=== PATIENT | male | born 1965 | race Hispanic/Latino ===

== ENCOUNTER 2017-09-18 12:05 | Emergency (ER) | payer OTHER ==
[~2017-09-18] VITALS: Ht 182.9 cm; Wt 113.4 kg
[~2017-09-18 12:05] MED LIST: AUGMENTIN 875 M1 TAB PO
--- NOTE | 2017-09-18 12:40 | ED NECK/BACK PAIN COMPLAINT ---
History of Present Illness General Chief Complaint: General Adult Stated Complaint: LEG AND BACK PAIN Source: patient, family Exam Limitations: no limitations Vital Signs & Intake/Output Vital Signs & Intake/Output Vital Signs Date Time Temp Pulse Resp B/P B/P Pulse O2 O2 Flow FiO2 Mean Ox Delivery Rate 09/18 1408 88 18 135/70 98 Room Air ED Intake and Output 05/ 0000 05 1200 Intake Total Output Total Balance Patient 113.398 kg Weight Weight Reported by Patient Measurement Method Allergies Coded Allergies: NO KNOWN ALLERGIES (09/18/17) Reconcile Medications AMOXICILLIN/POTASSIUM CLAV (Augmentin 875-125 Tablet) 875 MG/125 MG TAB 1 TAB PO BID . Cyclobenzaprine HCl 10 MG TABLET 1 TAB PO QPM SCIATICA Naproxen 500 MG TABLET 1 TAB PO BID SCIATICA Oxycodone HCl/Acetaminophen (Percocet 5-325 MG Tablet) 5 MG-325 MG TABLET 1 TAB PO TID SCIATICA Triage Note: 51 YO MALE TO TRIAGE C/O L SIDED PAIN STARTS IN BUTTOCKS AND RADIATES DOWN L LEG. DENIES INURY. STATES HAS BEEN TAKING NAPROSYN AND ADVIL WITHOUT RELIEF Triage Nurses Notes Reviewed? yes HPI: 51M PMH chronic lower back pain with 2 days of acute worsening of back pain. Occured while lying down, no exacerbating factors or trauma. Described as left lumbar pain radiating down his left leg. No incontinence or saddle paresthesia. Has had similar episodes in the past improved with physical therapy. No weakness or numbness in the leg. Otherwise well. Past History Travel History Traveled to [place] past 21 day No Medical History Any Pertinent Medical History? see below for history Neurological: NONE EENT: allergies Cardiovascular: NONE Respiratory: bronchitis Gastrointestinal: GERD Hepatic: NONE Renal: NONE Musculoskeletal: NONE Psychiatric: NONE Endocrine: NONE Surgical History Surgical History: N Psychosocial History What is your primary language Romanian Tobacco Use: Never used Family History Hx Contributory? No Review of Systems Review of Systems Constitutional: Reports: no symptoms. Eyes: Reports: no symptoms. Ears, Nose, Throat, Mouth: Reports: no symptoms. Respiratory: Reports: no symptoms. Cardiovascular: Reports: no symptoms. Gastrointestinal/Abdominal: Reports: no symptoms. Musculoskeletal: Reports: no symptoms. Skin: Reports: no symptoms. Neurological/Psychological: Reports: no symptoms. All Other Systems: Reviewed and Negative Physical Exam Physical Exam General Appearance: well developed/nourished, mild distress Head: atraumatic Eyes: Bilateral: normal appearance. Ears, Nose, Throat, Mouth: hearing grossly normal, moist mucous membrane Neck: normal inspection, supple, full range of motion, no midline tenderness Respiratory: normal breath sounds Cardiovascular: regular rate/rhythm Gastrointestinal: soft, non-tender Back: normal inspection Extremities: normal range of motion, sensory intact, ROM limited by pain, pulses intact, left lower lumbar paraspinal tenderness Straight Leg Raising: Left: Pain at ____ degrees (5). Neurologic/Psych: awake, alert, oriented x 3, normal mood/affect Skin: intact, normal color, warm/dry Core Measures CVA/TIA Diagnosis: No Progress Differential Diagnosis: aortic dissection, C spine injury, cauda equina syn, herniated disc, pyelo/UTI, sciatica, spinal cord inj, T/L spine injury, ureterolithiasis Plan of Care: Given Toradol, Percocet, Flexeril with improvement, now able to walk, pain improved. Will discharge home on same meds with instructions to see PCP for physical therapy referral. Departure Departure Disposition: HOME OR SELF CARE Condition: Stable Clinical Impression Primary Impression: Left sided sciatica Referrals: Brunilda PIERSON,Bart (PCP/Family) Additional Instructions: Follow up with your PCP for a referral to physical therapy. Do not drive or operate machinery while on Percocet. Return if any new or worsening symptoms. Departure Forms: Customer Survey General Discharge Information Prescriptions: Current Visit Scripts Oxycodone HCl/Acetaminophen (Percocet 5-325 MG Tablet) 1 TAB PO TID #15 TAB Cyclobenzaprine HCl 1 TAB PO QPM #30 TAB Naproxen 1 TAB PO BID #60 TAB
[2017-09-18] MEDS ORDERED: CYCLOBENZAPRINE10 M1 PO (13:26)
[2017-09-18] MEDS ORDERED: PERCOCET 5-3251 EACH PO (13:26)
[2017-09-18] MEDS ORDERED: NAPROXEN500 M2 PO (13:26)
[2017-09-18 14:08] VITALS: BP 135/70
[2017-11-17] MEDS ORDERED: IBUPROFEN800 M1 PO (23:11)
[2017-11-17] MEDS ORDERED: CIPRODEX OTIC7.5 ML OT (23:11)
== END 2017-09-18 14:08 ==
LOC: ERH 12:05
DX: M54.42 Lumbago with sciatica, left side (principal)
CPT/HCPCS: 96372; J1885